=== PATIENT | female | born 1955 | race Two or more races ===

== ENCOUNTER 2018-10-21 17:26 | Emergency (ER) | payer BC, OTHER ==
[2018-10-21 17:38] VITALS: BP 130/70
[2018-10-21] MEDS ORDERED: DIPH/PERTUSS(ACELL)/TETANUS VAC/PF 0.5 ML SYR (>=10YO) IM ONE (17:42)
--- NOTE | 2018-10-21 17:48 | ER Document Report ---
HPI - HPI Time Seen by Provider: 10/21/18 17:41 Pain Level: 2 Notes: Patient is a 62-year-old female with a history of hypertension and hypercholesteremia who presents to the emergency department complaining of dog bite to the left hand prior to arrival. Patient states that it was a friend's dog that is a month with a mutation status confirmed up-to-date per patient. Patient states that she is not sure of her last tetanus. Patient has noted 2 puncture wounds to her left hand, but is able to use her hand without difficulty aside from soreness. Patient states that the dog has not been acting ill. She has no other concerns or complaints. Patient states that she was reaching down to pet the dog when it bit her. Denies any headache, fever, neck pain, URI, sore throat, chest pain, palpitations, syncope, cough, shortness of breath, wheeze, dyspnea, abdominal pain, nausea/vomiting/diarrhea, urinary retention, dysuria, hematuria, loss of control of bowel or bladder, numbness/tingling, muscle paralysis, or rash. - ROS Systems Reviewed and Negative: Yes All other systems reviewed and negative - CONSTITUTIONAL Constitutional: DENIES: Fever, Chills - MUSCULOSKELETAL Musculoskeletal: REPORTS: Extremity pain - left hand Past Medical History - Social History Smoking Status: Never Smoker Frequency of alcohol use: None Drug Abuse: None Family History: Reviewed & Not Pertinent Patient has suicidal ideation: No Patient has homicidal ideation: No - Past Medical History Cardiac Medical History: Reports: Hx Hypercholesterolemia, Hx Hypertension Renal/ Medical History: Denies: Hx Peritoneal Dialysis Vertical Provider Document - CONSTITUTIONAL Agree With Documented VS: Yes Notes: PHYSICAL EXAMINATION: GENERAL: Well-appearing, well-nourished and in no acute distress. LUNGS: Breath sounds clear to auscultation bilaterally and equal. No wheezes rales or rhonchi. HEART: Regular rate and rhythm without murmurs, rubs, gallops. ABDOMEN: Soft, nontender, nondistended abdomen. No guarding, no rebound. No masses appreciated. Normal bowel sounds present. No CVA tenderness bilaterally. Musculoskeletal: Left hand: FROM to passive/active. Strength 5+/5. N/V intact distal. Extremities: No cyanosis, clubbing, or edema b/l. Peripheral pulses 2+. Capillary refill less than 3 seconds. NEUROLOGICAL: Normal speech, normal gait. Normal sensory, motor exams PSYCH: Normal mood, normal affect. SKIN: Left hand: there are two 0.5cm punctures noted. One to the web space 1- 2nd digit and one to the dorsal lateral hand. No obvious foreign body. No bony tenderness. No purulence or streaks. Course - Re-evaluation Re-evalutation: 10/21/18 18:28 Patient is an afebrile, well-hydrated, 62-year-old female who presents to the ED with left hand pain s/p dog bite. Vitals are acceptable without any significant tachycardia, tachypnea, or hypoxia. PE is otherwise unremarkable for any neurovascular compromise, obvious tendon/ligament rupture, obvious fracture/dislocation, foreign body, septic joint. X-ray was unremarkable for any acute pathology. Wounds were thoroughly irrigated and cleansed. Wounds to heal by secondary intent. Tetanus was given today. Patient is nontoxic- appearing. No other labs or imaging warranted at this time based on H&P. I will send her home with a prescription for Augmentin. Conservative measures otherwise for symptoms. Recheck with your PCM in 3-5 days. Consider consult orthopedics. Return to the ED with any worsening/concerning symptoms otherwise as reviewed in discharge. Patient is in agreement. - Vital Signs Vital signs: Temp Pulse Resp BP Pulse Ox 98.6 F 76 18 130/70 H 95 10/21/18 17:37 10/21/18 17:37 10/21/18 17:37 10/21/18 17:37 10/21/18 17:37 Discharge - Discharge Clinical Impression: Dog bite of left hand Qualifiers: Encounter type: initial encounter Qualified Code(s): S61.452A - Open bite of left hand, initial encounter; W54.0XXA - Bitten by dog, initial encounter Condition: Stable Disposition: HOME, SELF-CARE Instructions: Animal Bites ([facility]), Augmentin ([facility]) Additional Instructions: Keep the skin clean Wash with soap and water Tylenol/ibuprofen if needed Triple antibiotic ointment daily Take medication as directed Monitor for any worsening symptoms Recheck with your PCM in 3-5 days Consider consult with Orthopedics for ongoing/worsening symptoms Return to the ED with any worsening symptoms and/or development of fever, headache, chest pain, palpitations, syncope, shortness of breath, trouble breathing, abdominal pain, n/v/d, abscess, purulent discharge, red streaks, worsening swelling, or other worsening symptoms that are concerning to you. Prescriptions: Amox Tr/Potassium Clavulanate [Augmentin 875-125 Tablet] 1 tab PO BID 10 Days #20 tablet Forms: Elevated Blood Pressure Referrals: NATHAN BANUELOS MD [Primary Care Provider] - Follow up as needed [facility] [Provider Group] - Follow up as needed
--- NOTE | 2018-10-21 18:22 | RADIOLOGY REPORT (SQ) ---
EXAM DESCRIPTION: HAND LEFT 3 VIEWS COMPLETED DATE/TIME: 10/21/2018 6:02 pm REASON FOR STUDY: dog bite left hand, lateral COMPARISON: None. EXAM PARAMETERS: NUMBER OF VIEWS: Three views. TECHNIQUE: AP, lateral and oblique radiographic images acquired of the left hand. LIMITATIONS: None. FINDINGS: MINERALIZATION: Normal. BONES: No fracture. No puncture wounds. JOINTS: Degenerative joint changes in some of the distal interphalangeal joints, notably the 2nd, 3rd , and 5th. SOFT TISSUES: No soft tissue swelling. No foreign body. OTHER: No other significant finding. IMPRESSION: Degenerative joint disease. No acute osseous abnormality. TECHNICAL DOCUMENTATION: JOB ID: [id number] [employer]- All Rights Reserved Reading location - IP/workstation name: [email or web address]
== END 2018-10-21 18:39 | disposition home or self-care (01) ==
LOC: ER 17:26
DX: S61.452A Open bite of left hand, initial encounter (principal); W54.0XXA Bitten by dog, initial encounter; E78.00 Pure hypercholesterolemia, unspecified; I10 Essential (primary) hypertension; Z23 Encounter for immunization
CPT/HCPCS: 90715; 99283

== ENCOUNTER 2019-10-13 08:45 | Day surgery (SDC) | payer OTHER ==
[2019-10-07 10:57] LABS: HEMATOCRIT 45.3 % (36.0-47.0); HEMOGLOBIN 15.4 g/dL (12.0-15.5); MEAN CORPUSCULAR HEMOGLOBIN 30.7 pg (27.0-33.4); MEAN CORPUSCULAR HGB CONC 33.9 g/dL (32.0-36.0); MEAN CORPUSCULAR VOLUME 91 fl (80-97); PLATELET COUNT 190 10^3/uL (150-450); RED CELL DISTRIBUTION WIDTH 13.4 % (11.5-14.0); WHITE BLOOD COUNT 7.8 10^3/uL (4.0-10.5)
[2019-10-07 11:03] LABS: APPEARANCE,URINE SLIGHTLY-CLOUDY; BILIRUBIN,URINE NEGATIVE (NEGATIVE); COLOR,URINE YELLOW; GLUCOSE, URINE NEGATIVE (NEGATIVE); KETONES,URINE TRACE mg/dL (NEGATIVE); LEUKOCYTE ESTERASE,URINE SMALL (NEGATIVE); NITRITE,URINE NEGATIVE (NEGATIVE); PROTEIN,URINE NEGATIVE (NEGATIVE); URINE SPECIFIC GRAVITY 1.015; UROBILINOGEN,URINE NEGATIVE mg/dL (<2.0)
--- NOTE | 2019-10-07 20:11 | EKG REPORT ---
SEVERITY:- OTHERWISE NORMAL ECG - SINUS RHYTHM BORDERLINE LEFT AXIS DEVIATION : Confirmed by: Dani Mclean MD 07-Oct-2019 20:10:23
[~2019-10-13 08:45] MED LIST: LACTATED RINGERS 1000 ML IV PRN
[2019-10-13] MEDS ORDERED: FENTANYL CITRATE INJ/PF 100 MCG/2 ML AMPUL ONE (11:09)
[2019-10-13] MEDS ORDERED: MIDAZOLAM 2 MG/2 ML INJ ONE (11:10)
[2019-10-13] MEDS ORDERED: ONDANSETRON HCL INJ/PF 4 MG/2 ML SDV ONE (11:10)
[2019-10-13] MEDS ORDERED: PROPOFOL INJ 200 MG/20 ML VIAL IV ONE ×2 (11:10→11:40)
--- NOTE | 2019-10-13 11:51 | Operative Report ---
Operative Report DATE OF SURGERY: 10/13/19 PREOPERATIVE DIAGNOSIS: Postmenopausal bleeding and uterine polyp on ultrasound POSTOPERATIVE DIAGNOSIS: Same OPERATION: D&C hysteroscopy with removal of polyp using MyoSure SURGEON: MASHA LUDWIG ANESTHESIA: LMAC TISSUE REMOVED OR ALTERED: Uterine contents COMPLICATIONS: None ESTIMATED BLOOD LOSS: Minimal INTRAOPERATIVE FINDINGS: Polyp in the uterine cornu PROCEDURE: Patient was taken the OR and placed in supine position. Anesthesia was induced. She is placed in dorsolithotomy position using Mando stirrups. Her perineum and vagina were prepared and draped in sterile fashion. Her bladder was drained with a red rubber catheter. A weighted speculum was placed in the vagina and anterior lip cervix grasped with tenaculum. Uterus sounded to 6 cm before and after the case. Endocervical curettings were obtained. The cervix was gently dilated allowing a hysteroscope to be placed. A polyp could be seen in the left cornu. This was removed with the MyoSure device. Otherwise the uterine cavity did appear to have some bleeding areas which appeared to be most likely from atrophy. At the end of the case all instruments were removed. She was taken to the recovery room.
[2019-10-13] MEDS ORDERED: KETOROLAC TROMETHAMINE INJ/PF 30 MG/1 ML SDV ONE (12:11)
[2019-10-13 14:35] VITALS: BP 152/76
== END 2019-10-13 13:35 | disposition home or self-care (01) ==
LOC: OROUT 08:45
PROVIDERS: ATTEND Obstetrics & Gynecology
DX: N95.0 Postmenopausal bleeding (principal); I10 Essential (primary) hypertension; Z79.899 Other long term (current) drug therapy; N84.0 Polyp of corpus uteri; E03.9 Hypothyroidism, unspecified
CPT/HCPCS: 93005; 36415 ×2; 84132; 85027; 81001; 88305 ×2; 93010; 00952; 58558; J2250; J3010; J1885; J2405; J2704; 952